=== PATIENT | male | born 1990 | race Two or more races ===

== ENCOUNTER 2018-07-20 05:46 | Emergency (ER) | payer MEDICAID ==
[~2018-07-20] VITALS: Ht 180.3 cm; Wt 71.0 kg
[2018-07-20] MEDS ORDERED: LIDOCAINE HCL 1% 20ML VIAL (Pyxis) INJ INFIL ONE (07:30)
[2018-07-20] MEDS ORDERED: BACITRACIN ZINC OINT UDPKT TOP ONE (07:30)
[2018-07-20 08:49] VITALS: BP 115/78
== END 2018-07-20 09:29 | disposition home or self-care (01) ==
LOC: ER 05:46
DX: S61.412A Laceration without foreign body of left hand, initial encounter (principal); S60.511A Abrasion of right hand, initial encounter; F17.200 Nicotine dependence, unspecified, uncomplicated; W22.8XXA Striking against or struck by other objects, initial encounter; Y93.89 Activity, other specified; Y92.89 Other specified places as the place of occurrence of the external cause; Y99.8 Other external cause status
CPT/HCPCS: 12002; 99283; J3490